=== PATIENT | female | born 1980 | race Caucasian/White ===

== ENCOUNTER 2017-03-20 12:52 | Emergency (ER) | payer SELFPAY ==
--- NOTE | 2017-03-20 13:12 | ED.PDOC ---
History of Present Illness - General Chief Complaint: Eye Problems Stated Complaint: pressure in yes Time Seen by Provider: 03/20/17 12:58 Source: patient, RN notes reviewed Exam Limitations: no limitations - History of Present Illness Initial Comments: Jasmine Loving 37 y/o female stated for the last 6 months feeling some discomfort both eyes.Denies history of eye trauma,eye pain,eye matting.No blurry vision. Timing/Duration: other - 6 months EENT Location: eye (R), eye (L) Prearrival Treatment: no prearrival treatment Improving Factors: nothing, eating Associated Symptoms: denies symptoms Allergies/Adverse Reactions: Allergies NO KNOWN ALLERGY Allergy (Unverified 04/01/14 12:33) Home Medications: Ambulatory Orders NK [NK] 03/20/17 Review of Systems - Review of Systems Constitutional: States: no symptoms reported EENTM: States: see HPI Respiratory: States: no symptoms reported Cardiology: States: no symptoms reported Gastrointestinal/Abdominal: States: no symptoms reported Genitourinary: States: no symptoms reported Musculoskeletal: States: no symptoms reported Skin: States: no symptoms reported Neurological: States: no symptoms reported Past Medical History (General) - Patient Medical History Hx Seizures: No Hx Asthma: No Hx Cardiac Disorders: No Hx Hypertension: No - Vaccination History Hx Tetanus, Diphtheria Vaccination: Yes Hx Influenza Vaccination: No - Female History Patient : No Family Medical History - Family History Mother Family History: No Known Living Status: Still Living Hx Family Hypertension: Yes Physical Exam - Physical Exam General Appearance: Alert, No apparent distress Eye Exam: bilateral normal - Visual Acuity 20/20-both eyes, bilateral other - sharon.conjunctival injection Ear Exam: bilateral ear: auricle normal, canal normal, TM normal Nasal Exam: normal inspection Throat Exam: normal mouth inspection, pharynx normal Neck: full range of motion, supple, normal inspection, trachea midline Cardiovascular/Respiratory: regular rate, rhythm, no M/R/G, normal peripheral pulses, no JVD Abdominal Exam: non-tender, no organomegaly Neurologic: alert, oriented x 3 Skin Exam: normal color, warm/dry Progress - Progress Progress: 03/20/17 13:32 Vital Signs - 8 hr 03/20/17 13:15 Temperature 97.1 F L Pulse Rate [ 73 Right Brachial] Respiratory 20 Rate Blood Pressure 120/81 [Right Arm] O2 Sat by Pulse 99 Oximetry Departure - Departure Clinical Impression: Eye discomfort Qualifiers: Laterality: bilateral Qualified Code(s): H57.13 - Ocular pain, bilateral Time of Disposition: 13:33 Disposition: Discharge to Home or Self Care Condition: Good Home Medications: Ambulatory Orders NK [NK] 03/20/17 Additional Instructions: Continue with eye lubricant apply to both eyes 3 x a day;eye irrigation at bedtime;NEED TO FOLLOW UP WITH DATA COORDINATOR ;CALL FOR APPOINTMENT
[2017-03-20] MEDS ORDERED: OPHTHALMIC SALT SOLUTION 120 ML BTTL ONE (13:13)
[2017-03-20] MEDS ORDERED: MINERAL OIL/PETROLATUM OPHTH OINT 1 APPLIC UD BOTH_EYES ONE (13:13)
[2017-03-20] MEDS ORDERED: TETRACAINE HCL 0.5% OPHTH SOL 1 DROP OPHTH ONE (13:13)
[2017-03-20 13:17] VITALS: BP 120/81; TEMP 97.1; O2SAT 99
== END 2017-03-20 13:51 | disposition home or self-care (01) ==
LOC: ER 12:52
DX: H57.13 Ocular pain, bilateral (principal)

== ENCOUNTER → 2017-03-22 | Outpatient (CLI) | payer SELFPAY | END | disposition home or self-care (01) | LOC: YCFC.O 11:43 | PROVIDERS: ATTEND Nurse Practitioner Family | DX: Z13.9 Encounter for screening, unspecified (principal) ==

== ENCOUNTER → 2017-06-01 | Outpatient (CLI) | payer SELFPAY | END | disposition home or self-care (01) | LOC: LAB.O 08:44 | PROVIDERS: ATTEND Nurse Practitioner Family | DX: M25.50 Pain in unspecified joint (principal) ==

== ENCOUNTER 2018-10-09 18:35 | Emergency (ER) | payer SELFPAY ==
[2018-10-09] MEDS ORDERED: HYDROcodone 7.5MG/APAP 325MG 1 EA TAB PO ONE (18:56)
[2018-10-09 19:06] VITALS: TEMP 97.7
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
[2018-10-09] MEDS ORDERED: KETOROLAC TROMETHAMINE INJ 30 MG/ML VIAL IM ONE (19:39)
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
[2018-10-09 20:11] VITALS: BP 134/78; O2SAT 98
== END 2018-10-09 20:11 | disposition home or self-care (01) ==
LOC: ER 18:35
DX: S16.1XXA Strain of muscle, fascia and tendon at neck level, initial encounter (principal); S20.312A Abrasion of left front wall of thorax, initial encounter; S10.91XA Abrasion of unspecified part of neck, initial encounter; M25.561 Pain in right knee; V49.49XA Driver injured in collision with other motor vehicles in traffic accident, initial encounter; Y92.410 Unspecified street and highway as the place of occurrence of the external cause
CPT/HCPCS: 71046; 72125; J1885